=== PATIENT | male | born 1935 | race Caucasian/White ===

== ENCOUNTER 2022-10-03 21:36 | Emergency (ER) | payer MEDICARE, MEDICAID ==
[~2022-10-03] VITALS: Ht 175.3 cm; Wt 73.0 kg
[~2022-10-03 21:36] MED LIST: ALEN35TA52 MT; ASCO-316 PO; CHOL200026; CLOP75TA33 MT; FERR325T6 MT; METF-415 MT; SACU1TAB MT; SIMV-46 MT; TAMS-11 MT; VITA1CAP MT
[2022-10-03] MEDS ORDERED: TETANUS, DIPHTHERIA, PERTUSSIS VAC/PF 0.5ML (>10YR OLD) IM ONE (22:15)
[2022-10-03] MEDS ORDERED: ACETAMINOPHEN 325MG TABLET PO ONE (22:15)
[2022-10-03] MEDS ORDERED: LIDOCAINE HCL/EPINEPHRINE 1%-EPI 1:100,000 20 ML VIAL INFIL ONE (22:15)
[2022-10-03] MEDS ORDERED: LIDOCAINE HCL/EPINEPHRINE 1%-EPI 1:100,000 30 ML VIAL INFIL NR (22:30)
[2022-10-04 01:45] VITALS: BP 148/65
== END 2022-10-04 02:21 | disposition home or self-care (01) ==
LOC: ER 21:36
DX: S01.01XA Laceration without foreign body of scalp, initial encounter (principal); E11.9 Type 2 diabetes mellitus without complications; R51.9 Headache, unspecified; I10 Essential (primary) hypertension; W18.30XA Fall on same level, unspecified, initial encounter; Y93.89 Activity, other specified; Y92.89 Other specified places as the place of occurrence of the external cause; Y99.8 Other external cause status
CPT/HCPCS: 12002; 90471; 90715; 96372; 99285; J3490